=== PATIENT | male | born 1995 | race Two or more races ===

== ENCOUNTER 2020-06-28 13:50 | Emergency (ER) | payer MEDICAID ==
[~2020-06-28] VITALS: Ht 170.2 cm; Wt 133.8 kg
[~2020-06-28 13:50] MED LIST: ALBU18; CIPR500T4
[2020-06-28] MEDS ORDERED: KETOROLAC TROMETH 30 MG/ML 1ML VIAL IV ONE (14:15)
[2020-06-28] MEDS ORDERED: SODIUM CHLORIDE 0.9% 1,000 ML IVB ONE (14:15)
[2020-06-28 14:55] LABS: Basophils # (auto) 0.1 10 ^3/uL (0-0.2); Basophils % (auto) 0.7 % (0.0-2.0); Eosinophils # (auto) 0.1 10 ^3/uL (0-0.8); Eosinophils % (auto) 1.4 % (0.0-7.0); Hematocrit 47.5 % (41.0-53.0); Hemoglobin 16.4 g/dL (13.5-17.5); Lymphocytes # (auto) 2.6 10 ^3/uL (0.4-5.4); Lymphocytes % (auto) 27.2 % (10.0-50.0); Mean Corpuscular Hemoglobin 31.3 pg (28.0-32.0); Mean Corpuscular Hgb Conc. 34.5 g/dL (32.0-36.0); Mean Corpuscular Volume 90.7 fL (80.0-100.0); Monocytes # (auto) 0.8 10 ^3/uL (0-1.3); Monocytes % (auto) 7.8 % (0.0-12.0); Neutrophils # (auto) 6.1 10 ^3/uL (1.6-8.6); Neutrophils % (auto) 62.9 % (37.0-80.0); Red Blood Cells 5.24 10^6/uL (4.5-5.90); Red Cell Distribution Width 13.8 % (11.8-14.3); White Blood Cell 9.7 10^3/uL (4.4-10.8)
[2020-06-28 15:17] LABS: Albumin 3.7 g/dL (3.4-5.0); Calcium 8.1 mg/dL (8.5-10.1); Potassium 4.1 mmol/L (3.5-5.1)
[2020-06-28 15:21] LABS: BUN/Creatinine Ratio 15.8; Bilirubin, Total 0.2 mg/dL (0.2-1.0)
[2020-06-28 15:34] VITALS: BP 140/80
== END 2020-06-28 15:44 | disposition home or self-care (01) ==
LOC: ER 13:50
DX: R10.11 Right upper quadrant pain (principal); R10.32 Left lower quadrant pain; F17.210 Nicotine dependence, cigarettes, uncomplicated
CPT/HCPCS: 36415; 74176; 80053; 83690; 85025; 96361; 96374; 99284; J7030

== ENCOUNTER 2023-02-20 20:18 | Emergency (ER) | payer MEDICAID ==
[~2023-02-20] VITALS: Ht 170.2 cm; Wt 144.5 kg
[2023-02-20 21:17] VITALS: BP 145/56; PULSE 89; RESP 16; TEMP 98; O2SAT 97
[2023-02-20] MEDS ORDERED: IBUPROFEN 800 MG TAB PO ONE ×2 (21:45→22:00)
[2023-02-20 21:56] LABS: Basophils # (auto) 0.1 10 ^3/uL (0-0.2); Basophils % (auto) 0.5 % (0.0-2.0); Eosinophils # (auto) 0.2 10 ^3/uL (0-0.8); Eosinophils % (auto) 1.6 % (0.0-7.0); Hematocrit 45.9 % (41.0-53.0); Hemoglobin 15.3 g/dL (13.5-17.5); Lymphocytes # (auto) 2.9 10 ^3/uL (0.4-5.4); Lymphocytes % (auto) 29.7 % (10.0-50.0); Mean Corpuscular Hemoglobin 31.1 pg (28.0-32.0); Mean Corpuscular Hgb Conc. 33.3 g/dL (32.0-36.0); Mean Corpuscular Volume 93.5 fL (80.0-100.0); Monocytes # (auto) 0.7 10 ^3/uL (0-1.3); Monocytes % (auto) 6.8 % (0.0-12.0); Neutrophils # (auto) 6.1 10 ^3/uL (1.6-8.6); Neutrophils % (auto) 61.4 % (37.0-80.0); Red Blood Cells 4.91 10^6/uL (4.5-5.90); Red Cell Distribution Width 13.6 % (11.8-14.3); White Blood Cell 9.9 10^3/uL (4.4-10.8)
[2023-02-20 22:35] LABS: Erythrocyte Sedimentation Rate 5 mm/hr (0-20)
[2023-02-20] MEDS ORDERED: HYDROcodone-ACET 5/325MG TAB PO ONE (23:00)
[2023-02-20] MEDS ORDERED: HYDR-4902 PO (23:04)
[2023-02-20 23:09] LABS: Chloride 107 mmol/L (98-107); Potassium 3.8 mmol/L (3.5-5.1); Sodium 138 mmol/L (136-145)
[2023-02-20 23:10] LABS: Anion Gap 4.2 (5-15); Carbon Dioxide 26.8 mmol/L (20-30)
[2023-02-20 23:11] LABS: Calcium 8.7 mg/dL (8.5-10.1)
[2023-02-20 23:14] LABS: Uric Acid 5.5 mg/dL (3.7-9.2)
[2023-02-20 23:15] LABS: BUN/Creatinine Ratio 16.9 (10.0-20.0); Blood Urea Nitrogen 11 mg/dL (9-23); Glucose 128 mg/dL (74-106)
[2023-02-20 23:16] LABS: CRP High Sensitivity 0.39 mg/dL (<1.0)
== END 2023-02-20 23:59 | disposition home or self-care (01) ==
LOC: ER 20:18
DX: M25.562 Pain in left knee (principal); F17.210 Nicotine dependence, cigarettes, uncomplicated; Z88.8 Allergy status to other drugs, medicaments and biological substances
CPT/HCPCS: 36415; 73562; 80048; 84550; 85025; 85652; 86141

== ENCOUNTER 2023-11-28 15:39 | Emergency (ER) | payer MEDICAID ==
[~2023-11-28] VITALS: Ht 170.2 cm; Wt 144.7 kg
[~2023-11-28 15:39] MED LIST changes: +HYDR-4902 PO
[2023-11-28 15:54] VITALS: BP 144/94; PULSE 93; RESP 17; O2SAT 100
[2023-11-28] MEDS ORDERED: IBUPROFEN 800 MG TAB PO ONE (20:15)
[2023-11-28] MEDS ORDERED: IBUP1TAB5 PO (20:17)
[2023-11-28] MEDS ORDERED: BACL10TA PO (20:17)
== END 2023-11-28 21:14 | disposition home or self-care (01) ==
LOC: ER 15:39
DX: S33.5XXA Sprain of ligaments of lumbar spine, initial encounter (principal); S93.491A Sprain of other ligament of right ankle, initial encounter; S83.8X1A Sprain of other specified parts of right knee, initial encounter; F17.210 Nicotine dependence, cigarettes, uncomplicated; Z88.8 Allergy status to other drugs, medicaments and biological substances; Z79.899 Other long term (current) drug therapy; V49.59XA Passenger injured in collision with other motor vehicles in traffic accident, initial encounter; Y93.89 Activity, other specified; Y92.89 Other specified places as the place of occurrence of the external cause; Y99.8 Other external cause status
CPT/HCPCS: 72100; 73562; 73610